=== PATIENT | male | born 2000 | race Caucasian/White ===

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

== ENCOUNTER 2020-08-04 07:12 | Emergency (ER) | payer OTHER ==
[2020-08-04 07:51] LABS: BASOPHIL 0.3 % (0-2); EOSINOPHIL 2.1 % (0-5); HCT 42.1 % (42.0-52.0); HGB 13.7 g/dl (13.2-18.0); LYMPHOCYTE 26.6 % (15-48); MCH 27.8 pg (25.0-31.0); MCHC 32.5 g/dL (32.0-36.0); MCV 85.4 fL (78.0-100.0); MONOCYTE 10.6 % (0-12); MPV 10.4 fL (6.0-9.5); NEUTROPHIL 59.9 % (41-80); NRBC 0; PLT 381 K/uL (150-400); RBC 4.93 M/uL (4.70-6.00); RDW 13.6 % (11.5-14.0); WBC 10.2 K/uL (4.0-10.5)
[2020-08-04 08:09] LABS: ALBUMIN 3.5 g/dL (3.4-5.0); BILIRUBIN - TOTAL 0.4 mg/dL (0.2-1.0); BUN/CREAT RATIO (CALC) 19.5 RATIO; CREATININE 0.87 mg/dL (0.67-1.17); GLOBULIN (CALCULATION) 3.4 g/dL; POTASSIUM 4.2 mmol/L (3.5-5.1); TOTAL PROTEIN 6.9 g/dL (6.4-8.2)
[2020-08-04] MEDS ORDERED: NAPROXEN500 MG PO (09:44)
== END 2020-08-04 10:18 | disposition home or self-care (01) ==
LOC: FER 07:12
PROVIDERS: Emergency Medicine
DX: M94.0 Chondrocostal junction syndrome [Tietze] (principal); I10 Essential (primary) hypertension; E66.9 Obesity, unspecified; I45.4 Nonspecific intraventricular block
CPT/HCPCS: 36415; 71260; 80053; 84484; 85025; 93005; J1885; Q9967

== ENCOUNTER 2022-02-02 01:43 | Emergency (ER) | payer OTHER ==
[~2022-02-02 01:43] MED LIST: NAPROXEN500 MG PO
[2022-02-02 04:31] LABS: INFLUENZA A NAA NEGATIVE (NEGATIVE)
[2022-02-02 04:36] LABS: CORONAVIRUS 2019 SARS-COV-2 POSITIVE (NEGATIVE)
[2022-02-02] MEDS ORDERED: AZITHROMYCIN250 MG PO (04:39)
[2022-02-02] MEDS ORDERED: FLONASE ALLERG9.9 ML (04:41)
== END 2022-02-02 05:00 | disposition home or self-care (01) ==
LOC: FER 01:43
PROVIDERS: Internal Medicine
DX: U07.1 COVID-19 (principal); E11.9 Type 2 diabetes mellitus without complications; I10 Essential (primary) hypertension; Z79.84 Long term (current) use of oral hypoglycemic drugs; Z79.899 Other long term (current) drug therapy
CPT/HCPCS: 71045; U0002

== ENCOUNTER 2022-03-06 08:24 | Emergency (ER) | payer OTHER ==
[~2022-03-06 08:24] MED LIST changes: +AZITHROMYCIN250 MG PO; +FLONASE ALLERG9.9 ML
[2022-03-06] MEDS ORDERED: IBUPROFEN800 MG PO (09:17)
== END 2022-03-06 10:07 | disposition home or self-care (01) ==
LOC: FER 08:24
DX: M25.562 Pain in left knee (principal); E11.9 Type 2 diabetes mellitus without complications; I10 Essential (primary) hypertension; Z28.310 Unvaccinated for COVID-19; X50.1XXA Overexertion from prolonged static or awkward postures, initial encounter; Y92.69 Other specified industrial and construction area as the place of occurrence of the external cause; Y99.0 Civilian activity done for income or pay
CPT/HCPCS: 73564; J1885